=== PATIENT | male | born 1985 | race Caucasian/White ===

== ENCOUNTER → 2018-05-26 | Outpatient (CLI) | payer BC ==
[~2018-05-26] MED LIST: AMOX1TAB64 PO; OMNIPAQUE 350 MG/ML, 100ML BOTTLE ONE
== END | disposition home or self-care (01) ==
LOC: CFH 13:52
PROVIDERS: ATTEND Otolaryngology Facial Plastic Surgery
DX: H74.39 Other acquired abnormalities of ear ossicles (principal); H66.3X3 Other chronic suppurative otitis media, bilateral
CPT/HCPCS: 70480; Q9967